=== PATIENT | male | born 1945 | race Caucasian/White ===

== ENCOUNTER 2024-12-28 12:30 | Outpatient (RCR) | payer MEDICARE, SELFPAY | END 2024-12-28 14:28 | disposition home or self-care (01) | PROVIDERS: PCP Family Medicine; Visit Provider Family Medicine | DX: M77.11 Lateral epicondylitis, right elbow (principal); M79.631 Pain in right forearm; M25.521 Pain in right elbow; M25.321 Other instability, right elbow; Z51.89 Encounter for other specified aftercare | CPT/HCPCS: 97033; 97035; 97110; 97140; 97165; X5282 ==